=== PATIENT | female | born 1980 | race Caucasian/White ===

== ENCOUNTER 2023-01-14 13:35 | Emergency (ER) | payer BC, SELFPAY ==
[2023-01-14 13:39] VITALS: BP 156/106; PULSE 68; RESP 18; TEMP 36.2; O2SAT 100; BMI 30.2
--- NOTE | 2023-01-14 13:47 | ED.WOUNDLAC ---
HPI - Wound/Laceration General Time Seen by Provider: 13:47 Date Seen: 01/14/23 Chief Complaint: Laceration/Wound Stated Complaint: Lac L finger Time Seen by Provider: 01/14/23 13:38 Source: patient and RN notes reviewed Mode of arrival: ambulatory Limitations: no limitations Related Data Home Medications Medication Instructions Recorded Confirmed cetirizine 01/14/23 levothyroxine 112 mcg tablet 112 mcg PO DAILY 01/14/23 01/14/23 (Euthyrox) spironolactone 100 mg tablet 50 mg PO DAILY 01/14/23 01/14/23 (Aldactone) Allergies Allergy/AdvReac Type Severity Reaction Status Date / Time Sulfa (Sulfonamide Allergy Verified 01/14/23 13:43 Antibiotics) Exam Const: Vital Signs, click to edit/add: Vital Signs - 24 hr 01/14/23 13:39 Temperature 97.2 F L Pulse Rate [Right Pulse Oximeter] 68 Respiratory Rate 18 Blood Pressure [Ri ght Upper Arm] 156/106 H Pulse Oximetry 100 Oxygen Delivery Me thod Room Air Course Vital Signs Vital signs: Initial Vital Signs Temperature 97.2 F L 01/14/23 13:39 Temperature Source Temporal Artery Scan 01/14/23 13:39 Pulse Rate 68 01/14/23 13:39 Respiratory Rate 18 01/14/23 13:39 Blood Pressure 156/106 H 01/14/23 13:39 Blood Pressure Mean 122 H 01/14/23 13:39 Blood Pressure Position Sitting 01/14/23 13:39 Pulse Oximetry 100 01/14/23 13:39 Oxygen Delivery Method Room Air 01/14/23 13:39 Vital Signs Temperature 97.2 F L 01/14/23 13:39 Pulse Rate 68 01/14/23 13:39 Respiratory Rate 18 01/14/23 13:39 Blood Pressure 156/106 H 01/14/23 13:39 Pulse Oximetry 100 01/14/23 13:39 Oxygen Delivery Method Room Air 01/14/23 13:39 Temperature 97.2 F L 01/14/23 13:39 Pulse Rate 68 01/14/23 13:39 Respiratory Rate 18 01/14/23 13:39 Blood Pressure 156/106 H 01/14/23 13:39 Pulse Oximetry 100 01/14/23 13:39 Oxygen Delivery Method Room Air 01/14/23 13:39 Discharge Plan Discharge Prescriptions: No Action cetirizine levothyroxine [Euthyrox] 112 mcg tablet 112 mcg PO DAILY spironolactone [Aldactone] 100 mg tablet 50 mg PO DAILY
--- NOTE | 2023-01-14 14:32 | ED.GENADULT ---
HPI - General Adult General Chief complaint: Laceration/Wound Stated complaint: Lac L finger Time Seen by Provider: 01/14/23 13:38 Source: patient and RN notes reviewed Mode of arrival: ambulatory Limitations: no limitations History of Present Illness HPI narrative: Patient is a 42 year old female with a cut to the left little finger, she did this with a knife while cutting an avocado. She thinks she is up-to-date on tetanus we will check on that. Patient otherwise has been healthy moves her finger fully. No other injuries. Related Data Home Medications Medication Instructions Recorded Confirmed cetirizine 01/14/23 levothyroxine 112 mcg tablet 112 mcg PO DAILY 01/14/23 01/14/23 (Euthyrox) spironolactone 100 mg tablet 50 mg PO DAILY 01/14/23 01/14/23 (Aldactone) Allergies Allergy/AdvReac Type Severity Reaction Status Date / Time Sulfa (Sulfonamide Allergy Verified 01/14/23 13:43 Antibiotics) Review of Systems Narrative: No history of easy bleeding or bruising her lack of in improvement from infection PFSH PFS Social History Smoking Status: Unknown if ever smoked Non-prescribed substance use: denies use service: No Exam Narrative: Exam Narrative: Objective: There is a small 1 cm laceration that gapes slightly through the middle phalanx volar surface of the left little finger. Bleeds slightly normal distal CMS, flexion extension of the finger is normal at both the PIP and IP joint. Sensation is normal Const: Vital Signs, click to edit/add: Vital Signs - 24 hr 01/14/23 13:39 Temperature 97.2 F L Pulse Rate [Right Pulse Oximeter] 68 Respiratory Rate 18 Blood Pressure [Ri ght Upper Arm] 156/106 H Pulse Oximetry 100 Oxygen Delivery Me thod Room Air Course Vital Signs Vital signs: Initial Vital Signs Temperature 97.2 F L 01/14/23 13:39 Temperature Source Temporal Artery Scan 01/14/23 13:39 Pulse Rate 68 01/14/23 13:39 Respiratory Rate 18 01/14/23 13:39 Blood Pressure 156/106 H 01/14/23 13:39 Blood Pressure Mean 122 H 01/14/23 13:39 Blood Pressure Position Sitting 01/14/23 13:39 Pulse Oximetry 100 01/14/23 13:39 Oxygen Delivery Method Room Air 01/14/23 13:39 Vital Signs Temperature 97.2 F L 01/14/23 13:39 Pulse Rate 68 01/14/23 13:39 Respiratory Rate 18 01/14/23 13:39 Blood Pressure 156/106 H 01/14/23 13:39 Pulse Oximetry 100 01/14/23 13:39 Oxygen Delivery Method Room Air 01/14/23 13:39 Temperature 97.2 F L 01/14/23 13:39 Pulse Rate 68 01/14/23 13:39 Respiratory Rate 18 01/14/23 13:39 Blood Pressure 156/106 H 01/14/23 13:39 Pulse Oximetry 100 01/14/23 13:39 Oxygen Delivery Method Room Air 01/14/23 13:39 Medical Decision Making MDM Narrative Medical decision making narrative: [age] year old female with a left little finger laceration. Does not appear to evolve tendons or deep structures. After sterile cleansing with Betadine the wound was injected with 1% xylocaine and in closed with 3-0 simple opted sutures x3. The patient tolerated swell, good skin edge approximation good hemostasis, normal neurovascular function after repair. We will check on patient's tetanus status, discharged thereafter, keep covered for 24 hours then may soak or bathe as needed, cover with a bandage, suture removal in 7 days. Watch for redness or infection. Patient is up-to-date on tetanus Discharge Plan Discharge Clinical Impression: Laceration Patient Disposition: Home, Self-Care Condition: Improved Additional Instructions: Keep covered for 24 hours, then may soak or bathe normally, cover with a bandage. Watch for redness infection. Return if problems or concerns, otherwise suture removal 7 days. Activity Level: Light activity Discharge Diet: Regular Prescriptions: No Action cetirizine levothyroxine [Euthyrox] 112 mcg tablet 112 mcg PO DAILY spironolactone [Aldactone] 100 mg tablet 50 mg PO DAILY Stand Alone Forms: [id number] Info Instructions
== END 2023-01-14 14:56 | disposition home or self-care (01) ==
LOC: ED 14:41
PROVIDERS: Emergency Provider Family Medicine
DX: S61.217A Laceration without foreign body of left little finger without damage to nail, initial encounter (principal); W26.0XXA Contact with knife, initial encounter
CPT/HCPCS: 12001; 99283; 99284